=== PATIENT | female | born 1990 | race Two or more races ===

== ENCOUNTER 2021-05-16 18:42 | Emergency (ER) | payer BC ==
[2021-05-16 20:24] LABS: CORONAVIRUS COVID-19 NAA NEGATIVE (NEGATIVE)
[2021-05-16] MEDS ORDERED: Sodium Chloride 0.9% 10 ML Syringe FLUSH PRN (20:30)
[2021-05-16] MEDS ORDERED: Sodium Chloride 0.9% 1,000 ML IV STA (20:31)
[2021-05-16] MEDS ORDERED: HYDROmorphone 0.5 MG/0.5 ML Syringe IVPUSH ONE (20:31)
[2021-05-16] MEDS ORDERED: Ondansetron 4 MG/2 ML SDV IVPUSH ONE (20:31)
--- NOTE | 2021-05-16 21:47 | EDM.PDOC ---
ED HPI GENERAL MEDICAL PROBLEM - General Chief Complaint: Abdominal Pain Stated Complaint: GROIN PAIN Time Seen by Provider: 05/16/21 20:18 Source of Information: Reports: Patient, RN Notes Reviewed History Limitations: Reports: No Limitations - History of Present Illness INITIAL COMMENTS - FREE TEXT/NARRATIVE: Patient is a 31-year-old female presenting to the emergency department with complaints of a 3-day history of left lower quadrant abdominal pain. Pain is been progressively worsening. Reports pain is worse with ambulation and occasionally radiates down her leg and to her bilateral low back she has felt nauseous but denies any vomiting. Denies diarrhea. She is had no fever or chills. Reports history of ovarian cysts. Abdominal Pain Score (Numeric/FACES): 8 - Related Data Allergies Allergy/AdvReac Type Severity Reaction Status Date / Time acetaminophen Allergy Hives Verified 05/16/21 19:23 Home Meds: Home Meds HYDROcodone/Ibuprofen [Hydrocodone-Ibuprofen 5-200 mg] 1 each PO Q4H PRN #12 tablet 05/16/21 [Rx] Past Medical History [employer] History: Reports: Psychiatric History: Reports: Depression - Infectious Disease History Infectious Disease History: Reports: Novel Coronavirus Social & Family History - Tobacco Use Tobacco Use Status *Q: Never Tobacco User Second Hand Smoke Exposure: No - Caffeine Use Caffeine Use: Reports: Coffee - Alcohol Use Days Per Week of Alcohol Use: 3 Number of Drinks Per Day: 3 Total Drinks Per Week: 9 - Recreational Drug Use Recreational Drug Use: No ED ROS GENERAL - Review of Systems Review Of Systems: Comprehensive ROS is negative, except as noted in HPI. ED EXAM, GI/ABD - Physical Exam Exam: See Below Exam Limited By: No Limitations General Appearance: Alert, WD/WN, No Apparent Distress Respiratory/Chest: No Respiratory Distress, Lungs Clear, Normal Breath Sounds, No Accessory Muscle Use, Chest Non-Tender Cardiovascular: Normal Peripheral Pulses, Regular Rate, Rhythm, No Edema, No Gallop, No JVD, No Murmur, No Rub GI/Abdominal Exam: Normal Bowel Sounds, Soft, No Organomegaly, No Distention, No Abnormal Bruit, No Mass, Pelvis Stable, Tender (Left lower quadrant and mid lower) Back Exam: Normal Inspection. No: CVA Tenderness (L), CVA Tenderness (R) Extremities: Normal Inspection, Normal Range of Motion, Non-Tender, Normal Capillary Refill, No Pedal Edema Neurological: Alert, Oriented, Normal Cognition, Normal Gait, Normal Reflexes, No Motor/Sensory Deficits Psychiatric: Normal Affect, Normal Mood Skin Exam: Warm, Dry, Intact, Normal Color, No Rash Course - Vital Signs Last Recorded V/S: Last Vital Signs Temp 98.1 F 05/16/21 19:22 Pulse 92 05/16/21 19:22 Resp 15 05/16/21 19:22 BP 126/74 05/16/21 19:22 Pulse Ox 96 05/16/21 19:22 - Orders/Labs/Meds Orders: Active Orders 24 hr Category Date Time Status Peripheral IV Care [RC] . DIRECTED Care 05/16/21 20:31 Active Abdomen Pelvis w Cont [CT] Stat Exams 05/16/21 21:25 Taken URINALYSIS W/MICROSCOPIC [UA W/MICROSCOPIC] [URIN] Stat Lab 05/16/21 22:34 Results Sodium Chloride 0.9% [Saline Flush] Med 05/16/21 20:30 Active 10 ml FLUSH ASDIRECTED PRN Peripheral IV Insertion Adult [OM.PC] Stat Oth 05/16/21 20:31 Ordered Medication Orders Sodium Chloride (Sodium Chloride 0.9% 10 Ml Syringe) 10 ml FLUSH ASDIRECTED PRN PRN Reason: Keep Vein Open Last Admin: 05/16/21 21:37 Dose: 10 ml Documented by: DONN Labs: Laboratory Tests 05/16/21 05/16/21 05/16/21 Range/Units 19:34 20:50 20:50 WBC 9.84 (3.98-10.04) K/mm3 RBC 4.83 (3.98-5.22) M/mm3 Hgb 13.3 (11.2-15.7) gm/dl Hct 42.2 (34.1-44.9) % MCV 87.4 (79.4-94.8) fl MCH 27.5 (25.6-32.2) pg MCHC 31.5 L (32.2-35.5) g/dl RDW Std Deviation 41.4 (36.4-46.3) fL Plt Count 405 H (182-369) K/mm3 MPV 9.8 (9.4-12.3) fl Neut % (Auto) 49.7 (34.0-71.1) % Lymph % (Auto) 36.2 (19.3-51.7) % [place] % (Auto) 6.8 (4.7-12.5) % Eos % (Auto) 6.6 H (0.7-5.8) Baso % (Auto) 0.4 (0.1-1.2) % Neut # (Auto) 4.89 (1.56-6.13) K/mm3 Lymph # (Auto) 3.56 (1.18-3.74) K/mm3 Ransom # (Auto) 0.67 H (0.24-0.36) K/mm3 Eos # (Auto) 0.65 H (0.04-0.36) K/mm3 Baso # (Auto) 0.04 (0.01-0.08) K/mm3 Sodium (136-145) mEq/L Potassium (3.5-5.1) mEq/L Chloride (98-107) mEq/L Carbon Dioxide (21-32) mEq/L Anion Gap (5-15) BUN (7-18) mg/dL Creatinine (0.55-1.02) mg/dL Est Cr Clr Drug Dosing mL/min Estimated GFR (MDRD) (>60) mL/min BUN/Creatinine Ratio (14-18) Glucose (70-99) mg/dL Calcium (8.5-10.1) mg/dL Total Bilirubin (0.2-1.0) mg/dL AST (15-37) U/L ALT (14-59) U/L Alkaline Phosphatase (46-116) U/L C-Reactive Protein (<1.0) mg/dL Total Protein (6.4-8.2) g/dl Albumin (3.4-5.0) g/dl Globulin gm/dL Albumin/Globulin Ratio (1-2) HCG, Qual Negative (NEGATIVE) Urine Color (Yellow) Urine Appearance (Clear) Urine pH (5.0-8.0) Ur Specific [place] (1.005-1.030) Urine Protein (Negative) Urine Glucose (UA) (Negative) Urine Ketones (Negative) Urine Occult Blood (Negative) Urine Nitrite (Negative) Urine Bilirubin (Negative) Urine Urobilinogen (0.2-1.0) Ur Leukocyte Esterase (Negative) Influenza Type A RNA Negative (NEGATIVE) Influenza Type B RNA Negative (NEGATIVE) SARS-CoV-2 RNA (DAILY) Negative (NEGATIVE) 05/16/21 05/16/21 Range/Units 20:50 22:34 WBC (3.98-10.04) K/mm3 RBC (3.98-5.22) M/mm3 Hgb (11.2-15.7) gm/dl Hct (34.1-44.9) % MCV (79.4-94.8) fl MCH (25.6-32.2) pg MCHC (32.2-35.5) g/dl RDW Std Deviation (36.4-46.3) fL Plt Count (182-369) K/mm3 MPV (9.4-12.3) fl Neut % (Auto) (34.0-71.1) % Lymph % (Auto) (19.3-51.7) % [place] % (Auto) (4.7-12.5) % Eos % (Auto) (0.7-5.8) Baso % (Auto) (0.1-1.2) % Neut # (Auto) (1.56-6.13) K/mm3 Lymph # (Auto) (1.18-3.74) K/mm3 [place]ansom # (Auto) (0.24-0.36) K/mm3 Eos # (Auto) (0.04-0.36) K/mm3 Baso # (Auto) (0.01-0.08) K/mm3 Sodium 140 (136-145) mEq/L Potassium 4.2 (3.5-5.1) mEq/L Chloride 103 (98-107) mEq/L Carbon Dioxide 28 (21-32) mEq/L Anion Gap 13.2 (5-15) BUN 14 (7-18) mg/dL Creatinine 0.7 (0.55-1.02) mg/dL Est Cr Clr Drug Dosing 98.71 mL/min Estimated GFR (MDRD) > 60 (>60) mL/min BUN/Creatinine Ratio 20.0 H (14-18) Glucose 126 H (70-99) mg/dL Calcium 8.6 (8.5-10.1) mg/dL Total Bilirubin 0.2 (0.2-1.0) mg/dL AST 17 (15-37) U/L ALT 42 (14-59) U/L Alkaline Phosphatase 162 H (46-116) U/L C-Reactive Protein 3.1 H* (<1.0) mg/dL Total Protein 7.8 (6.4-8.2) g/dl Albumin 3.3 L (3.4-5.0) g/dl Globulin 4.5 gm/dL Albumin/Globulin Ratio 0.7 L (1-2) HCG, Qual (NEGATIVE) Urine Color Yellow (Yellow) Urine Appearance Clear (Clear) Urine pH 7.0 (5.0-8.0) Ur Specific [place] 1.020 (1.005-1.030) Urine Protein Negative (Negative) Urine Glucose (UA) Negative (Negative) Urine Ketones Negative (Negative) Urine Occult Blood Trace-intact H (Negative) Urine Nitrite Negative (Negative) Urine Bilirubin Negative (Negative) Urine Urobilinogen 0.2 (0.2-1.0) Ur Leukocyte Esterase Negative (Negative) Influenza Type A RNA (NEGATIVE) Influenza Type B RNA (NEGATIVE) SARS-CoV-2 RNA (DAILY) (NEGATIVE) Meds: Medications Generic Name Dose Route Start Last Admin Trade Name Maggie PRN Reason Stop Dose Admin Sodium Chloride 10 ml 05/16/21 20:30 05/16/21 21:37 Sodium Chloride 0.9% 10 Ml Syringe FLUSH 10 ml ASDIRECTED PRN Administration Keep Vein Open Discontinued Medications Generic Name Dose Route Start Last Admin Trade Name Maggie PRN Reason Stop Dose Admin Hydromorphone HCl 0.5 mg 05/16/21 20:31 05/16/21 21:33 Hydromorphone 0.5 Mg/0.5 Ml Syringe IVPUSH 05/16/21 20:32 0.5 mg ONETIME ONE Administration Sodium Chloride 1,000 mls @ 999 mls/hr 05/16/21 20:31 05/16/21 21:36 Normal Saline IV 05/16/21 21:31 150 mls/hr NOW STA Administration Ondansetron HCl 4 mg 05/16/21 20:31 05/16/21 21:31 Ondansetron 4 Mg/2 Ml Sdv IVPUSH 05/16/21 20:32 4 mg ONETIME ONE Administration - Re-Assessments/Exams Free Text/Narrative Re-Assessment/Exam: Patient is a 31-year-old female presenting to the emergency department for evaluation of a 3-day history of left lower quadrant abdominal pain. On exam, she does have localized left lower quadrant abdominal tenderness. Ordered normal saline, Zofran, Dilaudid. We will do blood work, urinalysis, and CT scan abdomen pelvis with IV contrast. 05/16/21 22:48 Hematology is significant for CRP minimally elevated 3.1. Otherwise unremarkable. Covid and influenza are negative. CT of the abdomen pelvis impression as follows: 1. Dilated proximal small bowel loops suggesting ileus or obstruction please correlate clinically. 2. Possible mild epiploic appendagitis of the sigmoid colon. 3. Hepatic steatosis. Case discussed with general surgeon, Dr. Phillips. Patient is had no vomiting and has been having normal bowel movements. Based on this, she does not have bowel obstruction. Diagnosis of epiploic appendagitis would be appropriate given her localized left lower quadrant abdominal tenderness. He recommends treatment of ibuprofen 600 mg every 6 hours. I will send prescription for short course of ibuprofen with hydrocodone as well for better pain management if needed. She is allergic to Tylenol. Patient is in agreement with this plan. Discharge instructions as documented. Departure - Departure Time of Disposition: 22:38 Disposition: Home, Self-Care 01 Condition: Good Clinical Impression: Epiploic appendagitis - Discharge Information *PRESCRIPTION DRUG MONITORING PROGRAM REVIEWED*: Yes *COPY OF PRESCRIPTION DRUG MONITORING REPORT IN PATIENT DEBO: No Prescriptions: HYDROcodone/Ibuprofen [Hydrocodone-Ibuprofen 5-200 mg] 1 each PO Q4H PRN #12 tablet PRN Reason: Pain (Moderate 4-6) Referrals: PCP,None [Primary Care Provider] - Forms: ED Department Discharge Additional Instructions: Take ibuprofen 600 mg every 6 hours routinely. For pain not relieved by this, you may take 1 hydrocodone with ibuprofen as needed for pain. Do not work or drive for 12 hours after taking this medication as it can be sedating. Symptoms should improve over the course of the next week. If you experience any new or worsening symptoms, please not hesitate to return to the emergency department for reevaluation. Sepsis Event Note (ED) - Focused Exam Vital Signs: Vital Signs Temp Pulse Resp BP Pulse Ox 05/16/21 19:22 98.1 F 92 15 126/74 96 - My Orders Last 24 Hours: My Active Orders 05/16/21 20:30 Sodium Chloride 0.9% [Saline Flush] 10 ml FLUSH ASDIRECTED PRN 05/16/21 20:31 Peripheral IV Care [RC] . DIRECTED Peripheral IV Insertion Adult [OM.PC] Stat 05/16/21 21:25 Abdomen Pelvis w Cont [CT] Stat - Assessment/Plan Last 24 Hours: My Active Orders 05/16/21 20:30 Sodium Chloride 0.9% [Saline Flush] 10 ml FLUSH ASDIRECTED PRN 05/16/21 20:31 Peripheral IV Care [RC] . DIRECTED Peripheral IV Insertion Adult [OM.PC] Stat 05/16/21 21:25 Abdomen Pelvis w Cont [CT] Stat
--- NOTE | 2021-05-17 10:20 | CT ---
EXAM: CT ABDOMEN PELVIS WITH CONTRAST LOCATION: [facility] (formerly [facility] [place] DATE/TIME: 05/16/2021 9:50 PM INDICATION: Left lower quadrant abdominal pain COMPARISON: None. TECHNIQUE: CT scan of the abdomen and pelvis was performed following injection of IV contrast. Multiplanar reformats were obtained. Dose reduction techniques were used. CONTRAST: Isovue 300 100ml FINDINGS: LOWER CHEST: Normal. HEPATOBILIARY: Mild hepatic steatosis. No suspicious liver lesion. No calcified gallstones. PANCREAS: Normal. SPLEEN: Normal. ADRENAL GLANDS: Normal. KIDNEYS/BLADDER: Normal. BOWEL: Mildly dilated proximal small bowel loops centrally in the abdomen. No free air, free fluid, or inflammatory change. Possible inflamed epiploic appendage within the sigmoid colon. Tiny fat-containing umbilical hernia. LYMPH NODES: Normal. VASCULATURE: Unremarkable. PELVIC ORGANS: Normal. MUSCULOSKELETAL: Normal. IMPRESSION: 1. Dilated proximal small bowel loop suggesting ileus or obstruction please correlate clinically. 2. Possible mild epiploic appendagitis of the sigmoid colon. 3. Hepatic steatosis. SIGNED BY: Ab Edwards MD 05/16/2021 11:21 PM [facility]
== END 2021-05-16 23:00 | disposition home or self-care (01) ==
LOC: JD.ED 18:42
DX: K63.89 Other specified diseases of intestine (principal); Z88.6 Allergy status to analgesic agent; Z20.822 Contact with and (suspected) exposure to COVID-19
CPT/HCPCS: 0240U; 36415; 74177; 80053; 81001; 84703; 85025; 86140; 96374; 96375; 99284; J1170; J2405; J7030

== ENCOUNTER 2022-09-25 12:03 | Emergency (ER) | payer BC ==
[2022-09-25] MEDS ORDERED: Sodium Chloride 0.9% 10 ML Syringe FLUSH PRN (12:20)
[2022-09-25 12:38] LABS: BASOPHILS ABSOLUTE AUTO 0.03 K/mm3 (0.01-0.08); BASOPHILS PERCENT AUTO 0.3 % (0.1-1.2); EOSINOPHILS ABSOLUTE AUTO 0.31 K/mm3 (0.04-0.36); EOSINOPHILS PERCENT AUTO 3.1 (0.7-5.8); HEMATOCRIT 40.3 % (34.1-44.9); HEMOGLOBIN 13.2 gm/dl (11.2-15.7); IMMATURE GRAN ABSOLUTE AUTO 0.03 K/mm3 (0.00-0.10); IMMATURE GRAN PERCENT AUTO 0.3 % (<=1.0); LYMPHOCYTES ABSOLUTE AUTO 2.13 K/mm3 (1.18-3.74); LYMPHOCYTES PERCENT AUTO 21.3 % (19.3-51.7); MEAN CORPUSCULAR HEMOGLOBIN 28.3 pg (25.6-32.2); MEAN CORPUSCULAR HGB CONC 32.8 g/dl (32.2-35.5); MEAN CORPUSCULAR VOLUME 86.5 fl (79.4-94.8); MEAN PLATELET VOLUME 10.2 fl (9.4-12.3); MONOCYTES ABSOLUTE AUTO 0.78 K/mm3 (0.24-0.36); MONOCYTES PERCENT AUTO 7.8 % (4.7-12.5); NEUTROPHILS ABSOLUTE AUTO 6.71 K/mm3 (1.56-6.13); NEUTROPHILS PERCENT AUTO 67.2 % (34.0-71.1); PLATELET COUNT,PLT 388 K/mm3 (182-369); RED BLOOD CELL COUNT 4.66 M/mm3 (3.98-5.22); WHITE BLOOD CELL COUNT,WBC 9.99 K/mm3 (3.98-10.04)
[2022-09-25 12:43] LABS: APPEARANCE,URINE CLEAR (Clear); BILIRUBIN,URINE NEGATIVE (Negative); COLOR,URINE YELLOW (Yellow); GLUCOSE,URINE NEGATIVE (Negative); KETONES,URINE NEGATIVE (Negative); LEUKOCYTE ESTERASE,URINE NEGATIVE (Negative); NITRITE,URINE NEGATIVE (Negative); OCCULT BLOOD,URINE NEGATIVE (Negative); PROTEIN,URINE 1+ (Negative)
[2022-09-25 13:04] LABS: A/G RATIO 0.8 (1-2); ALBUMIN 3.3 g/dl (3.4-5.0); ANION GAP 12.7 (5-15); BILIRUBIN TOTAL 0.3 mg/dL (0.2-1.0); BUN/CREATININE RATIO 15.7 (14-18); CALCIUM 8.8 mg/dL (8.5-10.1); CREATININE 0.7 mg/dL (0.55-1.02); EST CRCL DRUG DOSING (CG) 97.79 mL/min; POTASSIUM,K 3.7 mEq/L (3.5-5.1); PROTEIN TOTAL,TP 7.6 g/dl (6.4-8.2)
[2022-09-25 13:08] LABS: BACTERIA,URINE FEW /hpf (FEW); MUCUS,URINE MODERATE /hpf (FEW); RBC,URINE 0-5 /hpf (0-5); SQUAMOUS EPITHELIAL CELLS,UR 0-5 /hpf (0-5); WBC,URINE 0-5 /hpf (0-5)
== END 2022-09-25 15:43 | disposition home or self-care (01) ==
LOC: JD.ED 12:03
DX: O99.891 Other specified diseases and conditions complicating pregnancy (principal); R10.12 Left upper quadrant pain; Z91.018 Allergy to other foods; Z88.8 Allergy status to other drugs, medicaments and biological substances; Z86.16 Personal history of COVID-19; Z3A.01 Less than 8 weeks gestation of pregnancy
CPT/HCPCS: 36415; 76817; 80053; 81001; 84702; 85025; 86900; 86901; 99284; J3490; 99283

== ENCOUNTER 2023-05-13 03:07 | Inpatient (IN) | payer BC ==
[2023-05-13] MEDS ORDERED: Sodium Chloride 0.9% 10 ML Syringe FLUSH PRN (03:59)
[2023-05-13] MEDS ORDERED: Lidocaine 1% 50 ML MDV INJECT PRN (03:59)
[2023-05-13] MEDS ORDERED: Ondansetron 4 MG/2 ML SDV IVPUSH PRN (03:59)
[2023-05-13] MEDS ORDERED: Oxytocin/Lactated Ringers 30 UNIT/500 ML BAG IV SCH ×2 (04:00→06:30)
[2023-05-13] MEDS: Lactated Ringers 1,000 ML IV SCH ×3 (04:00→08:27)
[2023-05-13 04:15] LABS: BASOPHILS PERCENT AUTO 0.2 % (0.0-1.0); EOSINOPHILS ABSOLUTE AUTO 0.3 K/mm3 (0.0-0.4); EOSINOPHILS PERCENT AUTO 2.3 % (0.0-6.0); HEMATOCRIT 35.1 % (37.0-47.0); HEMOGLOBIN 11.7 gm/dl (12.0-16.0); IMMATURE GRAN ABSOLUTE AUTO 0.04 K/mm3 (0.00-0.05); IMMATURE GRAN PERCENT AUTO 0.4 % (0.0-0.4); LYMPHOCYTES ABSOLUTE AUTO 2.6 K/mm3 (1.0-4.8); LYMPHOCYTES PERCENT AUTO 23.4 % (24.0-44.0); MEAN CORPUSCULAR HGB CONC 33.3 g/dl (32.0-36.0); MEAN PLATELET VOLUME 10.7 fl (9.4-12.3); MONOCYTES ABSOLUTE AUTO 0.6 K/mm3 (0.0-0.8); MONOCYTES PERCENT AUTO 5.5 % (0.0-8.0); NEUTROPHILS ABSOLUTE AUTO 7.6 K/mm3 (1.8-7.7); NEUTROPHILS PERCENT AUTO 68.2 % (41.0-71.0); PLATELET COUNT,PLT 297 K/mm3 (150-400); RED BLOOD CELL COUNT 4.18 M/mm3 (4.10-5.30); WHITE BLOOD CELL COUNT,WBC 11.11 K/mm3 (3.9-11.3)
[2023-05-13] MEDS: Nalbuphine HCl 10 MG/ 1ML Amp IVPUSH PRN ×2 (06:18→09:46)
[2023-05-13] MEDS ORDERED: Sodium Chloride 0.9% 10 ML Syringe FLUSH SCH (09:00)
[2023-05-13] MEDS ORDERED: Acetaminophen 325 MG Tab PO PRN (12:01)
[2023-05-13] MEDS ORDERED: Ibuprofen 600 MG Tab PO PRN (12:01)
[2023-05-13] MEDS ORDERED: Witch Hazel Medicated Pads 40/Jar TOP PRN (12:01)
[2023-05-13] MEDS ORDERED: Benzocaine/Menthol 20%-0.5% Spray 78 GM Cannister TOP PRN (12:01)
[2023-05-14] MEDS ORDERED: Measles, Mumps & Rubella Vaccine 0.5 ML SDV SUBCUT ONE (07:30)
== END 2023-05-14 12:39 | disposition home or self-care (01) | DRG 560 ==
LOC: JD.OBCHECK 03:07 → JD.OB 03:10 → JD.OBCHECK 03:21 → JD.OB 03:22 → OBSVTOIN 10:43 → JD.OB 10:44
PROVIDERS: ADMIT Obstetrics & Gynecology; ATTEND Obstetrics & Gynecology
PROC: 10E0XZZ Delivery of Products of Conception, External Approach (ICD-10-PCS; principal; 2023-05-13)
PROC: 10907ZC Drainage of Amniotic Fluid, Therapeutic from Products of Conception, Via Natural or Artificial Opening (ICD-10-PCS; 2023-05-13)
PROC: 3E0234Z Introduction of Serum, Toxoid and Vaccine into Muscle, Percutaneous Approach (ICD-10-PCS; 2023-05-13)
DX: O77.0 Labor and delivery complicated by meconium in amniotic fluid (principal); Z37.0 Single live birth; Z3A.38 38 weeks gestation of pregnancy; Z23 Encounter for immunization; Z91.018 Allergy to other foods; Z88.5 Allergy status to narcotic agent; Z28.39 Other underimmunization status; Z86.16 Personal history of COVID-19
CPT/HCPCS: 36415; 59025; 59409; 85025; 86592; 90471; 90707; A9270-GY; J2300; J7120; J7999

== ENCOUNTER 2023-06-03 17:52 | Emergency (ER) | payer BC ==
[2023-06-03] MEDS ORDERED: Sodium Chloride 0.9% 10 ML Syringe FLUSH PRN (18:15)
[2023-06-03] MEDS ORDERED: Sodium Chloride 0.9% 1,000 ML IV STA (18:15)
[2023-06-03 18:44] LABS: BASOPHILS ABSOLUTE AUTO 0.1 K/mm3 (0.0-0.2); BASOPHILS PERCENT AUTO 0.7 % (0.0-1.0); EOSINOPHILS ABSOLUTE AUTO 0.6 K/mm3 (0.0-0.4); EOSINOPHILS PERCENT AUTO 7.5 % (0.0-6.0); HEMATOCRIT 39.6 % (37.0-47.0); HEMOGLOBIN 12.7 gm/dl (12.0-16.0); IMMATURE GRAN ABSOLUTE AUTO 0.02 K/mm3 (0.00-0.05); IMMATURE GRAN PERCENT AUTO 0.2 % (0.0-0.4); LYMPHOCYTES ABSOLUTE AUTO 2.7 K/mm3 (1.0-4.8); LYMPHOCYTES PERCENT AUTO 31.5 % (24.0-44.0); MEAN CORPUSCULAR HEMOGLOBIN 27.5 pg (28.0-32.0); MEAN CORPUSCULAR HGB CONC 32.1 g/dl (32.0-36.0); MEAN CORPUSCULAR VOLUME 85.9 fl (83.0-99.0); MEAN PLATELET VOLUME 9.8 fl (9.4-12.3); MONOCYTES ABSOLUTE AUTO 0.5 K/mm3 (0.0-0.8); MONOCYTES PERCENT AUTO 6.1 % (0.0-8.0); NEUTROPHILS ABSOLUTE AUTO 4.6 K/mm3 (1.8-7.7); PLATELET COUNT,PLT 374 K/mm3 (150-400); RED BLOOD CELL COUNT 4.61 M/mm3 (4.10-5.30); WHITE BLOOD CELL COUNT,WBC 8.55 K/mm3 (3.9-11.3)
[2023-06-03 19:15] LABS: A/G RATIO 0.7 (1-2); ALBUMIN 3.1 g/dl (3.4-5.0); ANION GAP 10.7 (5-15); BILIRUBIN TOTAL 0.2 mg/dL (0.2-1.0); BUN/CREATININE RATIO 16.3 (14-18); C-REACTIVE PROTEIN 0.8 mg/dL (<1.0); CALCIUM 8.6 mg/dL (8.5-10.1); CREATININE 0.8 mg/dL (0.55-1.02); EST CRCL DRUG DOSING (CG) 84.76 mL/min; POTASSIUM,K 3.7 mEq/L (3.5-5.1); PROTEIN TOTAL,TP 7.4 g/dl (6.4-8.2)
== END 2023-06-03 19:48 | disposition home or self-care (01) ==
LOC: JD.ED 17:52
DX: K80.50 Calculus of bile duct without cholangitis or cholecystitis without obstruction (principal); Z86.16 Personal history of COVID-19; Z88.6 Allergy status to analgesic agent; Z91.018 Allergy to other foods
CPT/HCPCS: 36415; 80053; 83690; 85025; 86140; 96360; 99284; J3490; J7030; 99282

== ENCOUNTER 2024-12-05 09:46 | Emergency (ER) | payer BC | END 2024-12-05 11:15 | disposition home or self-care (01) | LOC: JD.ED 09:46 | DX: H60.92 Unspecified otitis externa, left ear (principal); Z88.8 Allergy status to other drugs, medicaments and biological substances; Z91.018 Allergy to other foods; Z86.16 Personal history of COVID-19 | CPT/HCPCS: 87651; 99283; A9270 ==